=== PATIENT | female | born 1985 | race Caucasian/White ===

== ENCOUNTER 2019-04-22 07:35 | Emergency (ER) | payer BC ==
[~2019-04-22] VITALS: Ht 165.1 cm; Wt 70.3 kg
[2019-04-22] MEDS ORDERED: IV NS 0.9% 1,000 ML BAG IV ONE (08:00)
[2019-04-22] MEDS ORDERED: IV NS 0.9% 1,000 ML IV ONE (08:00)
[2019-04-22] MEDS ORDERED: ONDANSETRON HCL/PF 4 MG/2 ML VIAL IVP ONE (08:00)
[2019-04-22] MEDS ORDERED: ONDANSETRON HCL/PF 4 MG/2 ML VIAL ONE ×2 (08:03→10:00)
[2019-04-22 08:11] LABS: BASOPHILS % (AUTO) 0.6 % (0.0-2.0); HEMATOCRIT 43 % (33-45); HEMOGLOBIN 14.6 g/dL (11.5-14.8); LYMPHOCYTES # (AUTO) 1.9 /CMM (0.8-4.8); LYMPHOCYTES % (AUTO) 35.1 % (20.0-44.0); MEAN CORPUSCULAR HGB CONC 34 g/dl (31.0-36.0); MEAN CORPUSCULAR VOLUME 88 fL (82-100); MONOCYTES # (AUTO) 0.4 /CMM (0.1-1.30); MONOCYTES % (AUTO) 7.1 % (2.0-12.0); NEUTROPHILS % (AUTO) 56.2 % (43.0-81.0); PLATELET COUNT (AUTO) 244 /CMM (150-450); RED BLOOD CELL COUNT(AUTO) 4.85 MIL/uL (4.0-5.2); WHITE BLOOD COUNT (AUTO) 5.4 K/uL (4.3-11.0)
--- NOTE | 2019-04-22 08:18 | NUR ---
EMMA W/ FROM HOME TO ER BED 7. AAOX4. NO RESP DISTRESS NOTED. AMBULATORY. C/O NAUSEA, VOMMITING AND HEADACHE. ACCORDING TO PT, SHE WENT OUT DRINKING WITH HER FOR HIS BDAY. PT STATES THAT SHE DOES NOT REALLY DRINK AND THINKS THAT WHAT CAUSED THE NAUSEA AND VOMMITING. PT REPORTS THAT SHE THREW UP WHAT SHE ATE LAST NIGHT AND HAVE BEEN VOMMITING EVERY 30MIN WITH BILLOUS VOMMIT. PT RATES HER HEADACHE 9/10 TIGHTNESS AND PRESSURE ON THE TOP AND BACK OF THE HEAD. WAS AT BEDSIDE FOR EVAL. ORDERS RECEIVED , NOTED AND CARRIED OUT. IV LINE OBTAINED ON THE L AC 20G. BLOOD DRAWN AND GIVEN TO HOT MAN.
[2019-04-22 08:22] LABS: CALCIUM, SERUM 9.2 mg/dL (8.5-10.1); CREATININE 0.6 mg/dL (0.6-1.3)
[2019-04-22] MEDS ORDERED: ACETAMINOPHEN 325 MG TABLET ONE (08:26)
[2019-04-22 08:28] LABS: ALBUMIN 4.3 g/dL (3.4-5.0); BILIRUBIN,DIRECT 0.1 mg/dL (0.0-0.2); BILIRUBIN,TOTAL 0.4 mg/dL (0.2-1.0); TOTAL PROTEIN, SERUM 8.2 g/dL (6.4-8.2)
[2019-04-22] MEDS ORDERED: ACETAMINOPHEN 325 MG TABLET PO ONE (08:30)
[2019-04-22] MEDS ORDERED: ONDANSETRON HCL/PF - ER 4 MG/2 ML VIAL IV ONE (10:00)
--- NOTE | 2019-04-22 11:00 | NUR ---
IV removed. Catheter intact and site benign. Pressure and 4x4 applied to site. No bleeding noted.Patient discharged to home in stable condition. Written and verbal after care instructions given. Patient verbalizes understanding of instruction.
[2019-04-22 11:02] VITALS: BP 128/72
== END 2019-04-22 11:02 | disposition home or self-care (01) ==
LOC: ER 07:39
DX: R11.2 Nausea with vomiting, unspecified (principal); R51 Headache; E86.0 Dehydration
CPT/HCPCS: 36415; 80048; 80076; 83690; 84702; 85025; 96361; 96374; 96376; 99283; J2405 ×2; J7030 ×2